=== PATIENT | female | born 1995 | race Caucasian/White ===

== ENCOUNTER 2017-02-06 09:31 | Emergency (ER) | payer OTHER ==
[2017-02-06 10:31] VITALS: BP 127/78
--- NOTE | 2017-02-06 11:11 | EDM.PDOC ---
ED HPI RENAL/ - General Chief Complaint: Genitourinary Problem Stated Complaint: BLOOD IN URINE, PAINFULL PEEING Time Seen by Provider: 02/06/17 11:00 Source of Information: Reports: Patient History Limitations: Reports: No limitations - History of Present Illness INITIAL COMMENTS - FREE TEXT/NARRATIVE: This 21 yo female patient reports to the ED with right flank pain and blood in her urine. The patient reports she does not believe that she is . The patient reports similar symptoms about 1 month ago, but her symptoms just went away. The patient reports she has irregular menstrual cycles and may or may not be due to have a cycle this month. The patient reports she does have some right sided flank pain, but also has some across her back. Symptom Onset Date: 02/05/17 Timing/Duration: Reports: Constant, Getting worse Location: Reports: flank (right), generalized (lower abdomen ) Quality: Reports: ache, burning, cramping Severity: moderate Context: Reports: other Associated Symptoms: Reports: blood in urine, abdominal pain (lower abdomen), constipation (chronic) - Related Data Allergies/ADRs: Allergies Allergy/AdvReac Type Severity Reaction Status Date / Time enviromental Allergy Sneezing Uncoded 09/29/16 01:35 Home Meds: Home Meds Acetaminophen [Tylenol] 325 mg PO Q4H PRN 09/29/16 [History] Past Medical History - Past Health History Medical/Surgical History: Denies Medical/Surgical History HEENT History: Reports: None Genitourinary History: Reports: Pyelonephritis 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 April 2015 Neurological History: Reports: Headaches, chronic Psychiatric History: Reports: ADHD, Anxiety, Depression Hematologic History: Reports: None - Infectious Disease History Infectious Disease History: Reports: MRSA - Past Surgical History HEENT Surgical History: Reports: Adenoidectomy, Tonsillectomy Female Surgical History: Reports: section Social & Family History - Family History Family Medical History: Noncontributory Cardiac: Reports: High cholesterol, Hypertension OBGYN: Reports: Psychiatric: Reports: Depression Endocrine/Metabolic: Reports: Diabetes, type II - Tobacco Use Smoking Status *Q: Never Smoker Second Hand Smoke Exposure: No - Caffeine Use Caffeine Use: Reports: Soda - Alcohol Use Days Per Week of Alcohol Use: 0 - Recreational Drug Use Recreational Drug Use: No - Living Situation & Occupation Living situation: Reports: with family, single Occupation: student ED ROS GENERAL - Review of Systems Review Of Systems: ROS reveals no pertinent complaints other than HPI. ED EXAM, RENAL/ - Physical Exam Exam: See Below Exam Limited By: No limitations General Appearance: alert, WD/WN, mild distress Eye Exam: bilateral eye: EOMI, normal inspection, PERRL Ears: normal external exam, normal canal, hearing grossly normal, normal TMs Nose: normal inspection, normal mucosa, no blood Throat/Mouth: Normal inspection, Normal lips, Normal teeth, Normal gums, Normal oropharynx, Normal voice, No airway compromise Head: atraumatic, normocephalic Neck: normal inspection, supple, non-tender, full range of motion Respiratory/Chest: no respiratory distress Cardiovascular: normal peripheral pulses, regular rate, rhythm, no edema, no gallop, no JVD, no murmur, no rub GI/Abdominal: normal bowel sounds, soft, no organomegaly, no distention, no abnormal bruit, no mass, tender (lower abdomen) (Female) Exam: Deferred Rectal (Female) Exam: Deferred Back Exam: CVA tenderness (R) Extremities: normal inspection, normal range of motion, non-tender, normal capillary refill, no pedal edema Neurological: alert, oriented, CN II-XII intact, normal cognition, normal gait, normal reflexes, no motor/sensory deficits Psychiatric: normal affect, normal mood Skin Exam: Warm, Dry, Intact, Normal color, No rash Lymphatic: no adenopathy Course - Vital Signs Last Recorded V/S: Last Vital Signs Temp 36.4 C 02/06/17 10:29 Pulse 90 02/06/17 10:29 Resp 16 02/06/17 10:29 BP 127/78 02/06/17 10:29 Pulse Ox 100 02/06/17 10:29 - Orders/Labs/Meds Labs: Laboratory Tests 02/06/17 02/06/17 02/06/17 Range/Units 09:55 09:55 09:55 Urine Color Yellow (YELLOW) Urine Appearance Turbid (CLEAR) Urine pH 7.0 (5.0-9.0) Ur Specific [place] 1.025 (1.005-1.030) Urine Protein 100 H (NEGATIVE) Urine Glucose (UA) Negative (NEGATIVE) Urine Ketones Negative (NEGATIVE) Urine Occult Blood Large H (NEGATIVE) Urine Nitrite Negative (NEGATIVE) Urine Bilirubin Negative (NEGATIVE) Urine Urobilinogen 1.0 (0.2-1.0) mg/dL Ur Leukocyte Esterase Moderate H (NEGATIVE) Urine RBC >100 H /HPF Urine WBC >100 H (0-5/HPF) /HPF Ur Epithelial Cells Few /HPF Urine Bacteria Few (0-FEW/HPF) /HPF Urine HCG, Qual Negative Urine Opiates Screen Negative (NEGATIVE) Ur Oxycodone Screen Negative (NEGATIVE) Urine Methadone Screen Negative (NEGATIVE) Ur Barbiturates Screen Negative (NEGATIVE) U Tricyclic Antidepress Negative (NEGATIVE) Ur Phencyclidine Scrn Negative (NEGATIVE) Ur Amphetamine Screen Negative (NEGATIVE) U Methamphetamines Scrn Negative (NEGATIVE) Urine MDMA Screen Negative (NEGATIVE) U Benzodiazepines Scrn Negative (NEGATIVE) Urine Cocaine Screen Negative (NEGATIVE) U Marijuana (THC) Screen Negative (NEGATIVE) Meds: Medications Discontinued Medications Generic Name Dose Route Start Last Admin Trade Name Freq PRN Reason Stop Dose Admin Ketorolac Tromethamine 30 mg 02/06/17 12:35 Toradol IM 02/06/17 12:36 ONETIME ONE Departure - Departure Time of Disposition: 12:38 Disposition: Home, Self-Care 01 Condition: fair Clinical Impression: Kidney stone UTI (urinary tract infection) Qualifiers: Urinary tract infection type: site unspecified Hematuria presence: with hematuria Qualified Code(s): N39.0 - Urinary tract infection, site not specified ; R31.9 - Hematuria, unspecified Instructions: Urinary Tract Infection, Adult, [id number], Kidney Stones, Easy -to-Read Forms: ED Department Discharge Care Plan Goals: The patient was advised of the examination, lab and CT results during the visit. The patient was given an injection of Toradol while in the ED. The patient was given a script for Keflex (500 mg) #10 to take 1 by mouth 2 times per day for 5 days. If the patient has any additional symptoms or concerns, the patient should follow-up with her primary care facility or return to the emergency department.
--- NOTE | 2017-02-06 12:15 | CT ---
CLINICAL HISTORY: 21-year-old female with right flank pain, hematuria and history "nephrolithiasis" (CT scan abdomen 08 November 2016). SCAN TECHNIQUE: Volume acquisition of data from an emergency unenhanced CT scan of the abdomen and p howard obtained without oral or IV contrast while the patient was lying supine on the Siemens multisl ice CT scanner [place], [place]. All data archived in the PACS system for storage, reformatting and study. INTERPRETATION: Abnormal. 1. Reproducible large 5 mm diameter calcification posterolateral upper pole calyx right kidney, unch anged. *Tiny new 1 mm diameter calcification mid pole calyx right kidney. 2. No sign of cystic or solid renal cortical mass lesion, other renal calcification or obstructive u ropathy (pyelocaliectasis/ureterectasis), either kidney. 3. Symmetrically distended normal appearing urinary bladder (no intraluminal calcifications). 4. A few sigmoid diverticula. No associated signs of inflammation. 5. Unenhanced gallbladder, liver, stomach, spleen, pancreas and adrenal glands unremarkable. 6. Normal caliber aortoiliac vessels. Lumbar spine unremarkable. CONCLUSION: Nephrolithiasis (right kidney) without current signs of obstructive uropathy.
[2017-02-06] MEDS ORDERED: Ketorolac 30 MG/ML SDV IM ONE (12:35)
== END 2017-02-06 13:05 | disposition home or self-care (01) ==
LOC: DL.ED 09:31
DX: N39.0 Urinary tract infection, site not specified (principal); N20.0 Calculus of kidney; F32.9 Major depressive disorder, single episode, unspecified; F41.9 Anxiety disorder, unspecified; Z98.890 Other specified postprocedural states
CPT/HCPCS: 74176; 80305; 81001; 81025; 96372; 99284; J1885

== ENCOUNTER 2017-03-21 12:16 | Emergency (ER) | payer OTHER, MEDICAID ==
[2017-03-21 12:28] VITALS: BP 110/69
--- NOTE | 2017-03-21 13:06 | EDM.PDOC ---
ED HPI GENERAL MEDICAL PROBLEM - General Chief Complaint: Genitourinary Problem Stated Complaint: [id number] YEAST INFECTION Time Seen by Provider: 03/21/17 12:56 Source of Information: Reports: Patient, RN Notes Reviewed History Limitations: Reports: No Limitations - History of Present Illness INITIAL COMMENTS - FREE TEXT/NARRATIVE: patient is a 21-year-old female who complains of dysuria for 3 days. She denies fever chills nausea or vomiting she has not seen any other provider for this problem. She denies any vaginal discharge vaginal odor or new sex partners. 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 April 2015 Neurological History: Reports: Headaches, Chronic Psychiatric History: Reports: ADHD, Anxiety, Depression Hematologic History: Reports: None - Infectious Disease History Infectious Disease History: Reports: MRSA - Past Surgical History HEENT Surgical History: Reports: Adenoidectomy, Tonsillectomy Female Surgical History: Reports: Section Social & Family History - Family History Family Medical History: Noncontributory Cardiac: Reports: High Cholesterol, Hypertension OBGYN: Reports: Psychiatric: Reports: Depression Endocrine/Metabolic: Reports: Diabetes, type II - Tobacco Use Smoking Status *Q: Never Smoker Second Hand Smoke Exposure: No - Caffeine Use Caffeine Use: Reports: None - Alcohol Use Days Per Week of Alcohol Use: 0 - Recreational Drug Use Recreational Drug Use: No - Living Situation & Occupation Living situation: Reports: with Family, Single Occupation: Student ED ROS GENERAL - Review of Systems Review Of Systems: ROS reveals no pertinent complaints other than HPI. ED EXAM, RENAL/ - Physical Exam Exam: See Below Exam Limited By: No Limitations General Appearance: Alert, WD/WN, No Apparent Distress Throat/Mouth: Normal Inspection, Normal Lips, Normal Teeth, Normal Gums, Normal Oropharynx, Normal Voice, No Airway Compromise Head: Atraumatic, Normocephalic Neck: Normal Inspection, Supple, Non-Tender, Full Range of Motion Respiratory/Chest: No Respiratory Distress, Lungs Clear, Normal Breath Sounds, No Accessory Muscle Use, Chest Non-Tender Cardiovascular: Normal Peripheral Pulses, Regular Rate, Rhythm, No Edema, No Gallop, No JVD, No Murmur, No Rub GI/Abdominal: Normal Bowel Sounds, Soft, Non-Tender, No Organomegaly, No Distention, No Abnormal Bruit, No Mass (Female) Exam: Normal Bimanual Exam, Cervical Discharge (bloody), Vaginal Bleeding. No: Adnexal Mass, Adnexal Tenderness, Cervical Dilatation, Cervical Fluid, Cervical Lesions, Cervix Motion Tenderness, Enlarged Uterus Back Exam: Normal Inspection, Full Range of Motion, NT Extremities: Normal Inspection, Normal Range of Motion, Non-Tender, Normal Capillary Refill, No Pedal Edema Neurological: Alert, Oriented, CN II-XII Intact, Normal Cognition, Normal Gait, Normal Reflexes, No Motor/Sensory Deficits Psychiatric: Normal Affect, Normal Mood Skin Exam: Warm, Dry, Intact, Normal Color, No Rash Course - Vital Signs Last Recorded V/S: Last Vital Signs Temp 98.4 F 03/21/17 12:25 Pulse 92 03/21/17 12:25 Resp 16 03/21/17 12:25 BP 110/69 03/21/17 12:25 Pulse Ox 100 03/21/17 12:25 - Orders/Labs/Meds Orders: Active Orders 24 hr Category Date Time Status CHLAMYDIA TRACHOMATIS/GC AMPLF Stat Lab 03/21/17 13:05 Received Labs: Laboratory Tests 03/21/17 03/21/17 Range/Units 12:30 12:30 Urine Color Straw (YELLOW) Urine Appearance Cloudy (CLEAR) Urine pH 7.0 (5.0-9.0) Ur Specific [place] 1.020 (1.005-1.030) Urine Protein 30 H (NEGATIVE) Urine Glucose (UA) Negative (NEGATIVE) Urine Ketones Negative (NEGATIVE) Urine Occult Blood Large H (NEGATIVE) Urine Nitrite Positive H (NEGATIVE) Urine Bilirubin Negative (NEGATIVE) Urine Urobilinogen 1.0 (0.2-1.0) mg/dL Ur Leukocyte Esterase Large H (NEGATIVE) Urine RBC 20-30 H /HPF Urine WBC >100 H (0-5/HPF) /HPF Ur Epithelial Cells Few /HPF Urine Bacteria Moderate H (0-FEW/HPF) /HPF Urine HCG, Qual Negative Meds: Medications Discontinued Medications Generic Name Dose Route Start Last Admin Trade Name Freddyq PRN Reason Stop Dose Admin Ceftriaxone Sodium 1 gm 03/21/17 13:19 03/21/17 13:34 Rocephin IM 03/21/17 13:20 1 gm ONETIME ONE Administration Departure - Departure Time of Disposition: 14:09 Disposition: Refer to Observation Condition: good Clinical Impression: Dysuria, UTI, Urinary tract infectious disease UTI (urinary tract infection) Qualifiers: Urinary tract infection type: site unspecified Hematuria presence: with hematuria Qualified Code(s): N39.0 - Urinary tract infection, site not specified - Discharge Information Instructions: Urinary Tract Infection, Adult, [id number] Forms: ED Department Discharge Additional Instructions: Discharge Diagnosis: UTI Push clear liquids. take antibiotics till gone- start them tomorrow. Use pyridium for pain Have urine checked in 5-7 days to ensure the infection is gone. Return for increase pain or fever. - My Orders Last 24 Hours: My Active Orders 03/21/17 13:05 CHLAMYDIA TRACHOMATIS/GC AMPLF Stat - Assessment/Plan Last 24 Hours: My Active Orders 03/21/17 13:05 CHLAMYDIA TRACHOMATIS/GC AMPLF Stat
[2017-03-21] MEDS ORDERED: cefTRIAXone 1 GM Vial IM ONE (13:19)
== END 2017-03-21 14:29 | disposition home or self-care (01) ==
LOC: DL.ED 12:16
DX: N39.0 Urinary tract infection, site not specified (principal); F41.9 Anxiety disorder, unspecified; F32.9 Major depressive disorder, single episode, unspecified; Z98.890 Other specified postprocedural states; Z91.09 Other allergy status, other than to drugs and biological substances; Z79.899 Other long term (current) drug therapy
CPT/HCPCS: 81001; 81025; 87210; 87491; 87591; 96372; 99283; J0696

== ENCOUNTER 2018-01-04 00:03 | Emergency (ER) | payer OTHER, MEDICAID ==
[2018-01-04] MEDS ORDERED: Famotidine 20 MG/2 ML SDV IVPUSH ONE (01:04)
[2018-01-04] MEDS: Sodium Chloride 0.9% 1,000 ML IV ONE (01:16)
[2018-01-04] MEDS: Ondansetron 4 MG/2 ML SDV IV ONE (01:16)
[2018-01-04 01:43] LABS: CHLORIDE,CL 103 mmol/L (101-111); SODIUM,NA 137 mmol/L (135-145)
[2018-01-04] MEDS: Famotidine 20 MG Tab PO ONE (01:50)
[2018-01-04] MEDS: Ketorolac 30 MG/ML SDV IVPUSH ONE (01:51)
--- NOTE | 2018-01-04 02:02 | EDM.PDOC ---
ED HPI GENERAL MEDICAL PROBLEM - General Chief Complaint: Back Pain or Injury Stated Complaint: VOMITING, BACK PAIN [id number] Time Seen by Provider: 01/04/18 00:20 Source of Information: Reports: Patient, RN Notes Reviewed - History of Present Illness INITIAL COMMENTS - FREE TEXT/NARRATIVE: C/o low back pain with vomiting Was seen earlier in clinic today and blood work and UA done. Prescribed diclofenac. Vomiting prior to medication. Hx of cyclical vomiting in past but no episodes for approximately 3 years. Denies any injury to back, No change in activity. Pain worse with walking. No change in sensation or weakness. No burning with urination or pelvic pain. No change in vaginal discharge. Bilateral Lower Back Pain Score (Numeric/FACES): 7 - Related Data Allergies Allergy/AdvReac Type Severity Reaction Status Date / Time enviromental Allergy Sneezing Uncoded 01/04/18 00:17 Home Meds: Home Meds . [No Known Home Meds] 01/04/18 [History] Past Medical History - Past Health History Medical/Surgical History: Denies Medical/Surgical History HEENT History: Reports: None Genitourinary History: Reports: Pyelonephritis [employer]ER History: Reports: , 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 April 2015 Neurological History: Reports: Headaches, Chronic Psychiatric History: Reports: ADHD, Anxiety, Depression Hematologic History: Reports: None - Infectious Disease History Infectious Disease History: Reports: MRSA - Past Surgical History HEENT Surgical History: Reports: Adenoidectomy, Tonsillectomy Female Surgical History: Reports: Section Social & Family History - Family History Family Medical History: Noncontributory Cardiac: Reports: High Cholesterol, Hypertension OBGYN: Reports: Psychiatric: Reports: Depression Endocrine/Metabolic: Reports: Diabetes, type II - Tobacco Use Smoking Status *Q: Never Smoker Second Hand Smoke Exposure: No - Caffeine Use Caffeine Use: Reports: None - Alcohol Use Days Per Week of Alcohol Use: 0 - Recreational Drug Use Recreational Drug Use: No - Living Situation & Occupation Living situation: Reports: with Family, Single Occupation: Student ED ROS GENERAL - Review of Systems Review Of Systems: ROS reveals no pertinent complaints other than HPI. ED EXAM,LOWER BACK PAIN/INJURY - Physical Exam Exam: See Below Exam Limited By: No Limitations General Appearance: Alert, Mild Distress Eye Exam: Bilateral Eye: EOMI Ears: Normal External Exam Nose: Normal Inspection Throat/Mouth: Normal Inspection Head: Atraumatic, Normocephalic Neck: Normal Inspection Respiratory/Chest: No Respiratory Distress, Lungs Clear Cardiovascular: Normal Peripheral Pulses, Regular Rate, Rhythm GI/Abdominal: Normal Bowel Sounds, Soft, Non-Tender Back Exam: Full Range of Motion, Paraspinal Tenderness (low lumbar and sacral greater on lerft. ). No: CVA Tenderness (L), CVA Tenderness (R) Extremities: Normal Inspection, Normal Range of Motion Neurological: Alert, Normal Mood/Affect, Normal Dorsiflexion, Normal Plantar Flexion, Normal Gait, No Motor/Sensory Deficits, Oriented x 3. No: Straight Leg Raise (L), Straight Leg Raise (R) Psychiatric: Normal Affect Skin Exam: Warm, Dry, Intact, Normal Color Course - Vital Signs Last Recorded V/S: Last Vital Signs Temp 98.6 F 01/04/18 00:14 Pulse 107 H 01/04/18 00:14 Resp 18 01/04/18 00:14 BP 135/76 01/04/18 00:14 Pulse Ox 98 01/04/18 00:14 - Orders/Labs/Meds Orders: Active Orders 24 hr Category Date Time Status Sodium Chloride 0.9% [Normal Saline] 1,000 ml Med 01/04/18 01:04 Active IV .BOLUS Medication Orders Sodium Chloride (Normal Saline) 1,000 mls @ 999 mls/hr IV .BOLUS ONE Stop: 01/04/18 02:04 Last Admin: 01/04/18 01:16 Dose: 999 mls/hr Labs: Laboratory Tests 01/04/18 01/04/18 01/04/18 Range/Units 00:23 00:23 00:23 WBC (5.0-10.0) 10^3/uL RBC (4.2-5.4) 10^6/uL Hgb (12.0-16.0) g/dL Hct (37.0-47.0) % MCV (80-100) fL MCH (27.0-34.0) pg MCHC (33.0-35.0) g/dL Plt Count (150-450) 10^3/uL Neut % (Auto) (42.2-75.2) % Lymph % (Auto) (20.5-50.1) % [place] % (Auto) (2-8) % Eos % (Auto) (1.0-3.0) % Baso % (Auto) (0.0-1.0) % Sodium (135-145) mmol/L Potassium (3.6-5.0) mmol/L Chloride (101-111) mmol/L Carbon Dioxide (21.0-31.0) mmol/L Anion Gap BUN (7-18) mg/dL Creatinine (0.6-1.3) mg/dL Est Cr Clr Drug Dosing mL/min Estimated GFR (MDRD) BUN/Creatinine Ratio Glucose (74-105) mg/dL Calcium (8.4-10.2) mg/dl Total Bilirubin (0.2-1.0) mg/dL AST (10-42) IU/L ALT (10-60) IU/L Alkaline Phosphatase (42-121) IU/L Total Protein (6.7-8.2) g/dl Albumin (3.2-5.5) g/dl Globulin Albumin/Globulin Ratio Urine Color Dark yellow (YELLOW) Urine Appearance Cloudy (CLEAR) Urine pH 7.0 (5.0-9.0) Ur Specific [place] 1.020 (1.005-1.030) Urine Protein Trace H (NEGATIVE) Urine Glucose (UA) Negative (NEGATIVE) Urine Ketones Trace H (NEGATIVE) Urine Occult Blood Negative (NEGATIVE) Urine Nitrite Negative (NEGATIVE) Urine Bilirubin Negative (NEGATIVE) Urine Urobilinogen 1.0 (0.2-1.0) mg/dL Ur Leukocyte Esterase Small H (NEGATIVE) Urine RBC 5-10 H /HPF Urine WBC 5-10 H (0-5/HPF) /HPF Ur Epithelial Cells Many H /HPF Amorphous Sediment Rare (0/HPF) /HPF Urine Bacteria Few (0-FEW/HPF) /HPF Urine Mucus Few H /LPF Urine HCG, Qual Negative Urine Opiates Screen Negative (NEGATIVE) Ur Oxycodone Screen Negative (NEGATIVE) Urine Methadone Screen Negative (NEGATIVE) Ur Barbiturates Screen Negative (NEGATIVE) U Tricyclic Antidepress Negative (NEGATIVE) Ur Phencyclidine Scrn Negative (NEGATIVE) Ur Amphetamine Screen Negative (NEGATIVE) U Methamphetamines Scrn Negative (NEGATIVE) Urine MDMA Screen Negative (NEGATIVE) U Benzodiazepines Scrn Negative (NEGATIVE) Urine Cocaine Screen Negative (NEGATIVE) U Marijuana (THC) Screen Negative (NEGATIVE) 01/04/18 01/04/18 Range/Units 01:14 01:14 WBC 8.5 (5.0-10.0) 10^3/uL RBC 4.46 (4.2-5.4) 10^6/uL Hgb 13.4 (12.0-16.0) g/dL Hct 41.0 (37.0-47.0) % MCV 91.9 D (80-100) fL MCH 30.0 (27.0-34.0) pg MCHC 32.7 L (33.0-35.0) g/dL Plt Count 185 (150-450) 10^3/uL Neut % (Auto) 74.8 (42.2-75.2) % Lymph % (Auto) 17.0 L (20.5-50.1) % [place] % (Auto) 6.4 (2-8) % Eos % (Auto) 1.7 (1.0-3.0) % Baso % (Auto) 0.1 (0.0-1.0) % Sodium 137 (135-145) mmol/L Potassium 3.6 (3.6-5.0) mmol/L Chloride 103 (101-111) mmol/L Carbon Dioxide 26.0 (21.0-31.0) mmol/L Anion Gap 11.6 BUN 13 (7-18) mg/dL Creatinine 0.6 (0.6-1.3) mg/dL Est Cr Clr Drug Dosing 161.74 mL/min Estimated GFR (MDRD) > 60 BUN/Creatinine Ratio 21.66 Glucose 100 (74-105) mg/dL Calcium 9.3 (8.4-10.2) mg/dl Total Bilirubin 0.9 (0.2-1.0) mg/dL AST 20 (10-42) IU/L ALT 14 (10-60) IU/L Alkaline Phosphatase 62 (42-121) IU/L Total Protein 7.7 (6.7-8.2) g/dl Albumin 4.3 (3.2-5.5) g/dl Globulin 3.4 Albumin/Globulin Ratio 1.26 Urine Color (YELLOW) Urine Appearance (CLEAR) Urine pH (5.0-9.0) Ur Specific [place] (1.005-1.030) Urine Protein (NEGATIVE) Urine Glucose (UA) (NEGATIVE) Urine Ketones (NEGATIVE) Urine Occult Blood (NEGATIVE) Urine Nitrite (NEGATIVE) Urine Bilirubin (NEGATIVE) Urine Urobilinogen (0.2-1.0) mg/dL Ur Leukocyte Esterase (NEGATIVE) Urine RBC /HPF Urine WBC (0-5/HPF) /HPF Ur Epithelial Cells /HPF Amorphous Sediment (0/HPF) /HPF Urine Bacteria (0-FEW/HPF) /HPF Urine Mucus /LPF Urine HCG, Qual Urine Opiates Screen (NEGATIVE) Ur Oxycodone Screen (NEGATIVE) Urine Methadone Screen (NEGATIVE) Ur Barbiturates Screen (NEGATIVE) U Tricyclic Antidepress (NEGATIVE) Ur Phencyclidine Scrn (NEGATIVE) Ur Amphetamine Screen (NEGATIVE) U Methamphetamines Scrn (NEGATIVE) Urine MDMA Screen (NEGATIVE) U Benzodiazepines Scrn (NEGATIVE) Urine Cocaine Screen (NEGATIVE) U Marijuana (THC) Screen (NEGATIVE) Meds: Medications Generic Name Dose Route Start Last Admin Trade Name Freq PRN Reason Stop Dose Admin Sodium Chloride 1,000 mls @ 999 mls/hr 01/04/18 01:04 01/04/18 01:16 Normal Saline IV 01/04/18 02:04 999 mls/hr .BOLUS ONE Administration Discontinued Medications Generic Name Dose Route Start Last Admin Trade Name Freq PRN Reason Stop Dose Admin Famotidine 20 mg 01/04/18 01:04 Pepcid IVPUSH 01/04/18 01:05 ONETIME ONE Famotidine 20 mg 01/04/18 01:45 01/04/18 01:50 Pepcid PO 01/04/18 01:46 20 mg ONETIME ONE Administration Ketorolac Tromethamine 30 mg 01/04/18 01:43 01/04/18 01:51 Toradol IVPUSH 01/04/18 01:44 30 mg ONETIME ONE Administration Ondansetron HCl 4 mg 01/04/18 01:04 01/04/18 01:16 Zofran IV 01/04/18 01:05 4 mg ONETIME ONE Administration - Re-Assessments/Exams Free Text/Narrative Re-Assessment/Exam: 01/04/18 03:04 Nausea resolved and pain improved at discharge. Departure - Departure Time of Disposition: 01:58 Disposition: Home, Self-Care 01 Condition: Good Clinical Impression: Backache, Vomiting - Discharge Information Instructions: Nausea and Vomiting, Adult, [id number] Additional Instructions: omeprazole 20mg every am on empty stomach#20 Reglan 10mg one every 6 hours as needed for nausea and vomiting Continue diclofenac as prescribed follow up if not resolving heat or ice to low back - My Orders Last 24 Hours: My Active Orders 01/04/18 01:04 Sodium Chloride 0.9% [Normal Saline] 1,000 ml IV .BOLUS - Assessment/Plan Last 24 Hours: My Active Orders 01/04/18 01:04 Sodium Chloride 0.9% [Normal Saline] 1,000 ml IV .BOLUS
[2018-01-04 02:12] VITALS: BP 111/67
== END 2018-01-04 02:08 | disposition home or self-care (01) ==
LOC: DL.ED 00:03
DX: M54.5 Low back pain (principal); R11.10 Vomiting, unspecified
CPT/HCPCS: 36415; 80053; 80305; 81001; 81025; 85025; 96361; 96374; 96375; 99283; A9270; J1885; J2405; J7030

== ENCOUNTER 2018-06-14 09:06 | Emergency (ER) | payer OTHER, MEDICAID ==
[2018-06-14 09:20] VITALS: BP 133/70
--- NOTE | 2018-06-14 09:40 | EDM.PDOC ---
ED HPI GENERAL MEDICAL PROBLEM - General Chief Complaint: Upper Extremity Injury/Pain Stated Complaint: FELL,HURT LEFT WRIST Time Seen by Provider: 06/14/18 09:30 Source of Information: Reports: Patient History Limitations: Reports: No Limitations - History of Present Illness INITIAL COMMENTS - FREE TEXT/NARRATIVE: This 23 yo female patient reports to the ED with left wrist pain. The patient reports that she tripped and fell when getting out of her car on Monday (). The patient reports increased pain and swelling since that time. The patient reports she has been icing and taking Tylenol, but continues to have symptoms. The patient attempted to get an appointment in the clinic, but could not get one until tomorrow. The patient reports that she has difficulties lifting up her child due to the pain and swelling in the wrist. Onset Date: 06/12/18 Duration: Constant Location: Reports: Upper Extremity, Left Quality: Reports: Ache, Dull Severity: Moderate Improves with: Reports: Rest Worsens with: Reports: Movement Context: Reports: Other (gound level fall without loss of consciousness ) Associated Symptoms: Reports: No Other Symptoms Treatments REAL ESTATE DIRECTOR: Reports: Acetaminophen Left Wrist Pain Score (Numeric/FACES): 8 - Related Data Allergies Allergy/AdvReac Type Severity Reaction Status Date / Time enviromental Allergy Sneezing Uncoded 06/14/18 09:18 Home Meds: Home Meds Acetaminophen [Tylenol Extra Strength] 500 mg PO ASDIRECTED PRN 06/14/18 [ History] Past Medical History - Past Health History Medical/Surgical History: Denies Medical/Surgical History HEENT History: Reports: None Cardiovascular History: Reports: None Respiratory History: Reports: None Gastrointestinal History: Reports: None Genitourinary History: Reports: Pyelonephritis INTERNAL MEDICINE HOSPITALIST History: Reports: , Spontaneous Other INTERNAL MEDICINE HOSPITALIST History: [place]. April 2015 Musculoskeletal History: Reports: None Neurological History: Reports: Headaches, Chronic Psychiatric History: Reports: ADHD, Anxiety, Depression Endocrine/Metabolic History: Reports: None Hematologic History: Reports: None Immunologic History: Reports: None Oncologic (Cancer) History: Reports: None Dermatologic History: Reports: None - Infectious Disease History Infectious Disease History: Reports: MRSA - Past Surgical History Head Surgeries/Procedures: Reports: None HEENT Surgical History: Reports: Adenoidectomy, Tonsillectomy Female Surgical History: Reports: Section Social & Family History - Family History Family Medical History: Noncontributory Cardiac: Reports: High Cholesterol, Hypertension OBGYN: Reports: Psychiatric: Reports: Depression Endocrine/Metabolic: Reports: Diabetes, type II - Tobacco Use Smoking Status *Q: Never Smoker Second Hand Smoke Exposure: No - Caffeine Use Caffeine Use: Reports: Soda - Recreational Drug Use Recreational Drug Use: No - Living Situation & Occupation Living situation: Reports: with Family, Single Occupation: Student Review of Systems - Review of Systems Review Of Systems: ROS reveals no pertinent complaints other than HPI. ED EXAM, GENERAL - Physical Exam Exam: See Below Exam Limited By: No Limitations General Appearance: Alert, WD/WN, Mild Distress Eye Exam: Bilateral Eye: EOMI, Normal Inspection, PERRL Ears: Normal External Exam, Normal Canal, Hearing Grossly Normal, Normal TMs Nose: Normal Inspection, Normal Mucosa, No Blood Throat/Mouth: Normal Inspection, Normal Lips, Normal Teeth, Normal Gums, Normal Oropharynx, Normal Voice, No Airway Compromise Head: Atraumatic, Normocephalic Neck: Normal Inspection, Supple, Non-Tender, Full Range of Motion Respiratory/Chest: No Respiratory Distress, Lungs Clear, Normal Breath Sounds, No Accessory Muscle Use, Chest Non-Tender Cardiovascular: Normal Peripheral Pulses, Regular Rate, Rhythm, No Edema, No Gallop, No JVD, No Murmur, No Rub GI/Abdominal: Normal Bowel Sounds, Soft, Non-Tender, No Organomegaly, No Distention, No Abnormal Bruit, No Mass, Other (The patient does not know if she is . ) (Female) Exam: Deferred Rectal (Female) Exam: Deferred Back Exam: Normal Inspection, Full Range of Motion, NT Extremities: No Pedal Edema, Normal Capillary Refill, Arm Pain (left wrist pain (difficulties with pronation, supination, flexion and extension due to pain and swelling). ) Neurological: Alert, Oriented, CN II-XII Intact, Normal Cognition, Normal Gait, Normal Reflexes, No Motor/Sensory Deficits Psychiatric: Normal Affect, Normal Mood Skin Exam: Warm, Dry, Intact, Normal Color, No Rash Lymphatic: No Adenopathy Course - Vital Signs Last Recorded V/S: Last Vital Signs Temp 37.0 C 06/14/18 09:13 Pulse 97 06/14/18 09:13 Resp 16 06/14/18 09:13 BP 133/70 06/14/18 09:20 Pulse Ox 99 06/14/18 09:13 - Orders/Labs/Meds Orders: Active Orders 24 hr Category Date Time Status HCG QUALITATIVE,URINE [URCHEM] Stat Lab 06/14/18 09:27 Ordered Labs: Laboratory Tests 06/14/18 06/14/18 Range/Units 09:27 09:27 Urine Color Yellow (YELLOW) Urine Appearance Clear (CLEAR) Urine pH 7.0 (5.0-9.0) Ur Specific Desha 1.015 (1.005-1.030) Urine Protein Negative (NEGATIVE) Urine Glucose (UA) Negative (NEGATIVE) Urine Ketones Negative (NEGATIVE) Urine Occult Blood Negative (NEGATIVE) Urine Nitrite Negative (NEGATIVE) Urine Bilirubin Negative (NEGATIVE) Urine Urobilinogen 0.2 (0.2-1.0) mg/dL Ur Leukocyte Esterase Trace H (NEGATIVE) Urine RBC 0-5 /HPF Urine WBC 0-5 (0-5/HPF) /HPF Ur Epithelial Cells Moderate H /HPF Urine Bacteria Few (0-FEW/HPF) /HPF Urine Mucus Few H /LPF Urine HCG, Qual Positive - Re-Assessments/Exams Free Text/Narrative Re-Assessment/Exam: 06/14/18 10:24 The patient was advised of the positive results. The patient was then sent for x-rays with shielding. Departure - Departure Time of Disposition: 10:57 Disposition: Home, Self-Care 01 Condition: Fair Clinical Impression: Qualifiers: Weeks of gestation: unspecified Qualified Code(s): Z34.90 - Encounter for supervision of normal , unspecified, unspecified trimester Left wrist sprain Qualifiers: Encounter type: initial encounter Qualified Code(s): S63.502A - Unspecified sprain of left wrist, initial encounter - Discharge Information *PRESCRIPTION DRUG MONITORING PROGRAM REVIEWED*: Not Applicable *COPY OF PRESCRIPTION DRUG MONITORING REPORT IN PATIENT TJ: Not Applicable Instructions: First Trimester of , [id number], Wrist Sprain, Adult Referrals: Soren Willams MD [Primary Care Provider] - Forms: ED Department Discharge Care Plan Goals: The patient was advised of the examination, lab and x-ray results during the visit. The patient was placed in a left wrist splint. The patient was encouraged to rest, ice and elevate her wrist over the next 48 hours. The patient should wear the splint over the next 2 weeks. If the patient has any additional symptoms or concerns, the patient should follow-up with her primary care facility or return to the emergency department. - My Orders Last 24 Hours: My Active Orders 06/14/18 09:27 HCG QUALITATIVE,URINE [URCHEM] Stat - Assessment/Plan Last 24 Hours: My Active Orders 06/14/18 09:27 HCG QUALITATIVE,URINE [URCHEM] Stat
--- NOTE | 2018-06-14 10:52 | CR ---
Clinical history: 23-year-old female pain and swelling left wrist (fell 2 days ago). Interpretation: Mild soft tissue swelling but no sign of underlying left wrist fracture or dislocatio n (ring proximal phalanx finger). CONCLUSION: Sprain.
== END 2018-06-14 11:32 | disposition home or self-care (01) ==
LOC: DL.ED 09:06
DX: S63.502A Unspecified sprain of left wrist, initial encounter (principal); Z33.1 Pregnant state, incidental; W01.0XXA Fall on same level from slipping, tripping and stumbling without subsequent striking against object, initial encounter; Z91.09 Other allergy status, other than to drugs and biological substances
CPT/HCPCS: 73100-LT; 81001; 81025; 99283; 99284